=== PATIENT | female | born 1990 | race Caucasian/White ===

== ENCOUNTER 2019-10-10 12:58 | Emergency (ER) | payer OTHER, MEDICAID ==
[~2019-10-10] VITALS: Ht 167.6 cm; Wt 86.2 kg
[~2019-10-10 12:58] MED LIST: MACROBID 100 M100 M1 PO; TRINATE TABLET1 TAB PO
[2019-10-10] MEDS ORDERED: BIRTH CONTROL (13:11)
[2019-10-10 14:51] LABS: ABSOLUTE BASOPHILS 0.1 thou/uL (0.0-0.2); ABSOLUTE EOSINOPHILS 0.2 thou/uL (0.0-0.7); ABSOLUTE LYMPHOCYTES 2.4 thou/uL (0.8-5.3); ABSOLUTE MONOCYTES 0.6 thou/uL (0.0-1.2); ABSOLUTE NEUTROPHILS 4.5 thou/uL (1.6-8.1); BASOPHILS 0.9 %; EOSINOPHILS 2.9 %; HEMATOCRIT 42.4 % (37.0-47.0); HEMOGLOBIN 14.5 gm/dL (12.0-15.0); LYMPHOCYTES 30.7 %; MCH 27.7 pg (26.0-34.0); MCHC 34.3 g/dL (28.0-37.0); MCV 80.5 fL (80.0-100.0); MONOCYTES 7.1 %; MPV 8.3 fl. (7.2-11.1); NUCLEATED RBCS 0 /100WBC; PLATELET COUNT* 279 thou/uL (150-400); POLYS 58.4 %; RBC 5.26 mil/uL (4.20-5.00); RDW-CV 13.5 % (10.5-14.5); WBC 7.8 thou/uL (4.0-11.0)
[2019-10-10 15:10] LABS: CALCIUM 8.8 mg/dL (8.5-10.1); CREATININE 0.8 mg/dL (0.6-1.3)
[2019-10-10] MEDS ORDERED: IBUPROFEN 800800 M1 PO (15:49)
[2019-10-10 15:57] VITALS: BP 145/88
--- NOTE | 2019-10-11 10:38 | EKG ---
[place] [address] ELECTROCARDIOGRAM REPORT Name: CLAYTON WINKLER Room: [facility]#: [id number] Admission: 10/10/19 Attend Phys: Discharge: 10/10/19 Date of : 88 Date of Service: 10/10/19 1544 Report #: [id number] THIS REPORT FOR: //name// [facility] ED Test Date: 2019-10-10 Test Time: 15:44:03 Pat Name: CLAYTON WINKLER Department: Room: Gender: F Director Of Strategic Sales: TP : 1990 Requested By: Luisa Vásquez Order Number: [id number] MD: Chase Villela Measurements Intervals [place] Rate: 62 P: 2 AL: 189 QRS: 22 QRSD: 107 T: 11 QT: 407 QTc: 414 Interpretive Statements Sinus rhythm Low voltage, precordial leads RSR' in V1 or V2, right VCD or RVH No previous ECG available for comparison Electronically Signed On 10-11-2019 10:38:34 CDT by Chase Villela [email or web address] <ELECTRONICALLY SIGNED> By: Chase Villela MD, FACC 10/11/19 1038 1544 1544 Chase Villela MD, [facility] /EPI
== END 2019-10-10 15:58 | disposition home or self-care (01) ==
LOC: M.ERS 12:58
PROVIDERS: Nurse Practitioner Family
DX: M79.662 Pain in left lower leg (principal); R60.0 Localized edema; R07.89 Other chest pain; Z98.890 Other specified postprocedural states; Z88.0 Allergy status to penicillin